=== PATIENT | male | born 2000 | race Caucasian/White ===

== ENCOUNTER 2023-02-07 16:52 | Emergency (ER) | payer OTHER ==
[2023-02-07 17:02] VITALS: BP 114/69; O2SAT 99
[2023-02-07] MEDS ORDERED: predniSONE 20 MG TABLET PO STA (17:06)
[2023-02-07] MEDS ORDERED: SULFAMETH/TRIMETH DS 800/160 MG TABLET PO STA (17:06)
--- NOTE | 2023-02-07 17:08 | ED Physician Documentation ---
History of Present Illness - Stated complaint Stated Complaint: RASH - Chief complaint Chief Complaint: General - History obtained from History obtained from: Patient - Additonal information Additional information: Developed a rash on the scalp a couple of days ago that is spreading. It is mildly annoying. He wants to make sure he does not have [id number]-[id number]-mouth disease, but has no lesions on hands feet or in the mouth. No fevers. PD PAST MEDICAL HISTORY - Past Medical History Past Medical History: No Cardiovascular: None Respiratory: None Neuro: None Endocrine/Autoimmune: None GI: None : None HEENT: None Psych: None Musculoskeletal: None Derm: None - Past Surgical History Past Surgical History: No - Present Medications Home Medications: Ambulatory Orders Medication Instructions Recorded Confirmed Sulfamethox/Trimeth 800/160 1 each PO BID #14 tablet 02/07/23 [Bactrim Ds 800/160] predniSONE [Deltasone] 60 mg PO DAILY 5 Days #15 tablet 02/07/23 - Allergies Allergies/Adverse Reactions: Allergies Allergy/AdvReac Type Severity Reaction Status Date / Time No Known Drug Allergies Allergy Verified 02/07/23 16:58 - Social History Does the pt smoke?: Yes Smoking Status: Current every day smoker Does the pt drink ETOH?: Yes Does the pt have substance abuse?: Yes Substance Use and Type: Marijuana - Immunizations Immunizations are current?: Yes - POLST Patient has POLST: No PD ED PE NORMAL - Vitals Vital signs reviewed: Yes - General General: Alert and oriented X 3, No acute distress - HEENT HEENT: PERRL, EOMI, Other (Nonspecific rash on the scalp, could be a mild staphylococcal infection versus an allergic reaction, hard to say. No other rash elsewhere. No oral lesions.) - Neuro Neuro: Alert and oriented X 3, Normal speech Results - Vitals Vitals: Vital Signs - 24 hr 02/07/23 16:58 Temperature 37.2 C Heart Rate 73 Respiratory 16 Rate Blood Pressure 114/69 O2 Saturation 99 Oxygen O2 Source Room air PD Medical Decision Making - ED course ED course: The rash is very mild and hard to characterize, could be a staphylococcal rash versus allergic. Will cover with Bactrim and prednisone. Departure - Departure Disposition: 01 Home, Self Care Clinical Impression: Rash and nonspecific skin eruption Condition: Good Record reviewed to determine appropriate education?: Yes Instructions: ED Staph Infec Abx Tx Only Prescriptions: Sulfamethox/Trimeth 800/160 [Bactrim Ds 800/160] 1 each PO BID #14 tablet predniSONE [Deltasone] 60 mg PO DAILY 5 Days #15 tablet Comments: The rash is not consistent with xpfa-qvgl-yso-mouth disease. Could be consistent with a localized allergic reaction versus a staph infection of your scalp, where treating both with steroids and antibiotics. Return if you worsen. Follow-up with your family doctor toward the end of the week if not improved. Forms: PCP List
== END 2023-02-07 17:32 | disposition home or self-care (01) ==
LOC: ED 16:52
DX: R21 Rash and other nonspecific skin eruption (principal); F17.200 Nicotine dependence, unspecified, uncomplicated
CPT/HCPCS: 99282; 99283; A9270; J7512